=== PATIENT | male | born 1955 | race Caucasian/White ===

== ENCOUNTER 2021-05-16 06:43 | Day surgery (SDC) | payer MEDICAID ==
[2021-05-09 12:01] LABS: BASOPHILS # (AUTO) 0.1 X10'3 (0-0.2); EOSINOPHILS # (AUTO) 0.3 X10'3 (0-0.9); EOSINOPHILS % (AUTO) 5.7 % (0-6); LYMPHOCYTES # (AUTO) 1.5 X10'3 (1.1-4.8); MEAN CORPUSCULAR HEMOGLOBIN 32.7 PG (27.0-31.0); MEAN CORPUSCULAR HGB CONC 34.6 g/dL (33.0-36.5); MEAN CORPUSCULAR VOLUME 94.3 FL (78-98); MEAN PLATELET VOLUME 7.9 FL (7.4-10.4); MONOCYTES # (AUTO) 0.5 X10'3 (0-0.9); MONOCYTES % (AUTO) 8.5 % (2-12); NEUTROPHILS # (AUTO) 3.2 X10'3 (1.8-7.7); NEUTROPHILS % (AUTO) 57.8 % (42-75); PRE OP HEMATOCRIT 44.7 % (42.0-52.0); PRE OP HEMOGLOBIN 15.5 g/dL (14.0-17.9); PRE OP PLATELET COUNT 205 X10'3 (140-440); RED BLOOD COUNT 4.75 X10'6 (4.70-6.10); RED CELL DISTRIBUTION WIDTH 12.7 % (11.5-14.5)
[2021-05-09 12:30] LABS: ALBUMIN 3.9 G/DL (3.4-5.0); ALBUMIN/GLOBULIN RATIO 1.1 (1.1-1.5); ALKALINE PHOSPHATASE 101 IU/L (46-116); BLOOD UREA NITROGEN 15 MG/DL (7-18); BUN/CREATININE RATIO 17.4 (5.4-32.0); CHLORIDE 102 MMOL/L (99-107); CREATININE 0.86 MG/DL (0.60-1.10); PRE OP ALT 59 U/L (30-65); PRE OP ANION GAP 9 (8-16); PRE OP AST 48 U/L (10-37); PRE OP BILIRUB, TOTAL 0.6 MG/DL (0.0-1.0); PRE OP GLUCOSE 114 MG/DL (70-104); PRE OP POTASSIUM 3.9 MMOL/L (3.4-5.1); PRE OP SODIUM 137 MMOL/L (135-145); TOTAL CARBON DIOXIDE 26.4 MMOL/L (24-32); TOTAL PROTEIN 7.4 G/DL (6.4-8.2); eGFR 89 ML/MIN
[~2021-05-16] VITALS: Ht 185.4 cm; Wt 102.7 kg
[2021-05-16] VITALS (9 sets, daily range): BP systolic 115–194; BP diastolic 52–102
[~2021-05-16 06:43] MED LIST: ALLO100T PO; ATOR20TA66 PO; HYDR25TA4 PO; LOSA50TA64 PO; cefazolin/dext.iso 2gm/50ml IV ONE; famotidine 20mg tablet PO ONE; ringers solution, lacted 1,000 ML IV SCH
--- NOTE | 2021-05-16 06:50 | NUR ---
DR LINK NOTIFIED OF PT ELEVATED BP 194/102 ORDER FOR LOPRESSOR RECEIVED AND MED GIVEN TO PT Addendum: 05/16/21 at 1405 by Poppy Orr RN Amended: Links added.
[2021-05-16] MEDS ORDERED: BUPIVAcaine/PF 2.5mg/ml (0.25%) 10ml vial ONE (06:59)
[2021-05-16] MEDS ORDERED: LIDOcaine 1% 30ml preserv. free vial ONE ×2 (06:59→07:18)
[2021-05-16] MEDS ORDERED: metoprolol tartrate 50mg tablet PO ONE (07:10)
[2021-05-16] MEDS ORDERED: meperidine/PF 25mg/ml syringe IV PRN ×3 (07:55)
[2021-05-16] MEDS ORDERED: hydrALAZINE 20mg/ml inj. IV PRN (07:55)
[2021-05-16] MEDS ORDERED: morphine 4 MG/ML inj SYRINge IV PRN (07:55)
[2021-05-16] MEDS ORDERED: ringers solution, lacted 1,000 ML IV SCH (07:55)
[2021-05-16] MEDS ORDERED: labetalol 20mg/4ml (5mg/ml) syringe IV PRN (07:55)
[2021-05-16] MEDS ORDERED: morphine 2 MG/ML inj. syringe IV PRN (07:55)
[2021-05-16] MEDS ORDERED: acetaminophen 1,000mg/100ml IV 100 ML IV PRN (07:55)
[2021-05-16] MEDS ORDERED: ondansetron/PF 4mg/2ml inj IV PRN (07:55)
[2021-05-16] MEDS ORDERED: proCHLORperazine 10 MG/2 ml inj IV PRN (07:55)
[2021-05-16] MEDS ORDERED: fentaNYL/PF 50MCG/1 ML 2ML syringe ONE (08:21)
[2021-05-16] MEDS ORDERED: midazolam 1 mg/ML 2ml injection ONE (08:22)
[2021-05-16] MEDS ORDERED: 0.9 % SODIUM CHLORIDE 10 ML VIAL ONE ×2 (08:29)
[2021-05-16] MEDS ORDERED: propofol inj 20 ML IV ONE (08:30)
--- NOTE | 2021-05-16 08:44 | NUR ---
Received from OR via [facility], accompanied by Anesthesiologist DR LINK and report given by Anesthesiologist. PT DROWSY, DENIES PAIN. RIGHT HAND/WRIST W/BIAS JACKY CDI, FINGERS PWD. Addendum: 05/16/21 at 0905 by sEtrellita Gottlieb RN Amended: Links added.
--- NOTE | 2021-05-16 10:16 | NUR ---
PT UP AND AMBULATING, STEADY ON FEET, VOIDED. PT WAITING FOR [facility] TO COME AND MAGNETIZER. Addendum: 05/16/21 at 1016 by Estrellita Gottlieb RN Amended: Links added.
--- NOTE | 2021-05-16 11:14 | NUR ---
PT GIVEN BREAKFAST, TOLERATING FOOD AND LIQUIDS, STEADY ON FEET, DENIES PAIN. PT STATES HE HAS A FRIEND HE CAN CALL IF HE NEEDS ANY HELP. D/C INSTRUCTIONS GIVEN AND GONE OVER W/PT WHO VERBALIZED UNDERSTANDING. PT DC/D VIA W/C TO [facility] TO HOME WITHOUT INCIDENT. Addendum: 05/16/21 at 1211 by Estrellita Gottlieb RN Amended: Links added.
== END 2021-05-16 11:14 | disposition home or self-care (01) ==
LOC: PAS 06:43
PROVIDERS: ATTEND Orthopaedic Surgery Hand Surgery
DX: G56.01 Carpal tunnel syndrome, right upper limb (principal); I10 Essential (primary) hypertension; M10.9 Gout, unspecified; E66.9 Obesity, unspecified; Z68.29 Body mass index [BMI] 29.0-29.9, adult; Z98.890 Other specified postprocedural states; Z79.899 Other long term (current) drug therapy; Z72.89 Other problems related to lifestyle; Z20.822 Contact with and (suspected) exposure to COVID-19
CPT/HCPCS: 29848; 36415; 80053; 82948; 85025; 93005; J0690; J2250; J2704; J3010; J3490; J7030; J7120; U0003; U0005; Z7506; Z7512; A4215; A6449; A7000